=== PATIENT | male | born 1965 | race Caucasian/White ===

== ENCOUNTER → 2019-10-12 15:53 | Outpatient (BNVA) | payer BC, SELFPAY | PROVIDERS: Family Provider Nurse Practitioner; PCP Internal Medicine Interventional Cardiology; Visit Provider Nurse Practitioner Family | DX: R59.0 Localized enlarged lymph nodes (principal); R68.89 Other general symptoms and signs; J30.9 Allergic rhinitis, unspecified | CPT/HCPCS: 80053; 85025 ==

== ENCOUNTER 2021-07-28 12:10 | Outpatient (CLI) | payer BC, SELFPAY ==
[2021-07-28 12:19] VITALS: BP 110/58; PULSE 59; RESP 20; TEMP 36.3; O2SAT 94; BMI 40.6
[2021-07-28 13:03] VITALS: BP 102/57; PULSE 65; RESP 20; O2SAT 93
[2021-07-28 14:04] VITALS: BP 112/66; PULSE 60; RESP 20; TEMP 35.8; O2SAT 94
== END 2021-07-28 12:11 | disposition home or self-care (01) ==
LOC: OPS 12:13
PROVIDERS: PCP Internal Medicine Interventional Cardiology; Visit Provider Nurse Practitioner Family
DX: U07.1 COVID-19 (principal)
CPT/HCPCS: 96365